=== PATIENT | female | born 1960 | race Caucasian/White ===

== ENCOUNTER 2017-10-08 20:09 | Emergency (ER) | payer MEDICAID ==
[~2017-10-08] VITALS: Ht 157.5 cm; Wt 63.5 kg
[~2017-10-08 20:09] MED LIST: IBUP-2213 PO; VIC PO
[2017-10-08 20:19] VITALS: BP 114/68
--- NOTE | 2017-10-08 20:24 | NUR ---
TO LOBBY, MOMO, VSS, A/W FOR BED, JEFFERSON NOTED
[2017-10-08] MEDS ORDERED: ACETAMINOPHEN EXTRA STRENGTH 500 MG TAB ONE (20:36)
--- NOTE | 2017-10-09 00:45 | NUR ---
Note debbie in EDM - 10/09/17 at 0241 by EMBER Patient discharged with v/s stable. Written and verbal after care instructions given and explained. Patient alert, oriented and verbalized understanding of instructions. Ambulatory with steady gait. All questions addressed prior to discharge. ID band removed. Patient advised to follow up with PMD. Rx of MOTRIN AND PROMETHAZINE/DEXTROMETHORPHAN given. Patient educated on indication of medication including possible reaction and side effects. Opportunity to ask questions provided and answered.
--- NOTE | 2017-10-09 00:50 | NUR ---
PT TAKEN TO OVERFLOW 1
--- NOTE | 2017-10-09 00:51 | NUR ---
57/F CAME IN WITH C/O HEADACHE AND COUGH X 1 WEEK, WITH FEVERS, PT CAME IN WTIH 101.5, COOLING MEASURES AND MED PROTOCOL GIVEN. ALL LUNG SOUNDS CBTA, 18RR EVEN AND UNLABORED. DENIES PMH/RX/OTC
[2017-10-09] MEDS ORDERED: PROCHLORPERAZINE 10 MG/2 ML VIAL IM ONE (01:05)
[2017-10-09] MEDS ORDERED: diphenhydrAMINE 50 MG/ML VIAL IM ONE (01:05)
[2017-10-09 01:45] VITALS: BP 113/56
--- NOTE | 2017-10-09 01:45 | NUR ---
Patient discharged with v/s stable. Written and verbal after care instructions given and explained. Patient alert, oriented and verbalized understanding of instructions. Ambulatory with steady gait. All questions addressed prior to discharge. ID band removed. Patient advised to follow up with PMD. Rx of MOTRIN AND PROMETHAZINE/DEXTROMETHORPHAN given. Patient educated on indication of medication including possible reaction and side effects. Opportunity to ask questions provided and answered.
== END 2017-10-09 01:45 | disposition home or self-care (01) ==
LOC: MED 20:09
DX: J06.9 Acute upper respiratory infection, unspecified (principal); K21.9 Gastro-esophageal reflux disease without esophagitis
CPT/HCPCS: 71046; 96372; 99284; J0780; J1200

== ENCOUNTER 2017-12-10 16:38 | Emergency (ER) | payer MEDICAID ==
[~2017-12-10] VITALS: Ht 149.9 cm; Wt 68.7 kg
[2017-12-10 16:43] VITALS: BP 119/74
--- NOTE | 2017-12-10 16:49 | NUR ---
URINE CUP PROVIDED TO PT FOR URINE SAMPLE. PT AWAKE, ALERT, APPROPRIATE, WITH EVEN AND STEADY GAIT. TO LOBBY AWAITING OPEN BED.
--- NOTE | 2017-12-10 17:53 | NUR ---
PT AMBULATED TO BED 1.
--- NOTE | 2017-12-10 18:18 | NUR ---
PT COMES TO ER FOR RUQ PAIN X 1 YEAR, WORSENING IN THE LAST 4 DAYS WITH FEVERS/NAUSEA/VOMITTING/DIARRHEA. ABD LARGE, SOFT, TENDER TO PALPATION, +BS X 4 QUADS. RESP EVEN AND UNLABORED, IN NAD. PT STATES SHE HAD A CHOLECYSTECTOMY IN 2017. DENIES DYSURIA. SKIN W/D/I.
[2017-12-10 19:04] LABS: BASOPHILS % (AUTO) 1.1 % (0.0-2.0); HEMATOCRIT 38.4 % (36-48); HEMOGLOBIN 12.6 g/dL (12.0-16.0); LYMPHOCYTES % (AUTO) 34.5 % (20.5-51.1); MEAN CORPUSCULAR HEMOGLOBIN 31 pg (27-31); MEAN CORPUSCULAR HGB CONC 33 g/dL (33-37); MEAN CORPUSCULAR VOLUME 94 fL (80-94); MONOCYTES % (AUTO) 8.3 % (1.7-9.3); NEUTROPHILS # (AUTO) 3.4 K/uL (1.8-7.7); NEUTROPHILS % (AUTO) 53.1 % (42.2-75.2); PLATELET COUNT (AUTO) 227 K/uL (140-450); RED CELL DISTRIBUTION WIDTH 12.7 % (11.6-13.7); WHITE BLOOD COUNT (AUTO) 6.5 K/uL (4.8-10.8)
[2017-12-10 19:05] LABS: BASOPHILS # (AUTO) 0.1 K/uL (0.00-0.22); EOSINOPHILS # (AUTO) 0.5 K/uL (0-0.4)
--- NOTE | 2017-12-10 19:08 | NUR ---
REPORT GIVEN TO ONCOMING RN
--- NOTE | 2017-12-10 19:13 | NUR ---
REPORT RECEIVED FROM GERRI JENKINS
[2017-12-10 19:14] LABS: CREATININE 0.9 mg/dL (0.6-1.3)
--- NOTE | 2017-12-10 19:20 | NUR ---
Patient being evaluated by physician at bedside.
[2017-12-10 19:30] LABS: ALBUMIN 3.9 g/dL (3.4-5.0); TOTAL BILIRUBIN 0.2 mg/dL (0.0-1.0)
[2017-12-10 19:32] LABS: APPEARANCE,URINE CLEAR (CLEAR); BILIRUBIN,URINE NEGATIVE (NEGATIVE); BLOOD, URINE 1+ (NEGATIVE); COLOR,URINE YELLOW (YELLOW); LEUKOCYTE ESTERASE ,URINE NEGATIVE (NEGATIVE); NITRITE, URINE NEGATIVE (NEGATIVE); UGLUCOSE NEGATIVE (NEGATIVE)
[2017-12-10 19:46] LABS: CALCIUM OXALATE CRYSTALS,UR 0-10 /HPF (None Seen); RBC,URINE 3-10 (FEW) /HPF (0-5); WBC,URINE 0-5 (RARE) /HPF (0-5)
[2017-12-10] MEDS ORDERED: KETOROLAC 60 MG/2 ML VIAL IM ONE (21:15)
[2017-12-10 21:50] VITALS: BP 109/67
--- NOTE | 2017-12-10 21:50 | NUR ---
Patient discharged with v/s stable. Written and verbal after care instructions given and explained. Patient alert, oriented and verbalized understanding of instructions. Ambulatory with steady gait. All questions addressed prior to discharge. ID band removed. Patient advised to follow up with PMD. Rx of MIRALAX , ZOFRAN 4MG given. Patient educated on indication of medication including possible reaction and side effects. Opportunity to ask questions provided and answered.
== END 2017-12-10 21:50 | disposition home or self-care (01) ==
LOC: MED 16:38
DX: R10.11 Right upper quadrant pain (principal); K21.9 Gastro-esophageal reflux disease without esophagitis; Z90.49 Acquired absence of other specified parts of digestive tract
CPT/HCPCS: 36415; 74018; 74176; 80053; 81001; 83690; 85025; 96372; 99285; J1885

== ENCOUNTER 2018-05-31 15:43 | Emergency (ER) | payer MEDICAID ==
[~2018-05-31] VITALS: Ht 149.9 cm; Wt 69.9 kg
[2018-05-31 15:57] VITALS: BP 118/73
[2018-05-31 18:08] VITALS: BP 120/70
== END 2018-05-31 18:08 | disposition home or self-care (01) ==
LOC: MED 15:43
DX: M50.123 Cervical disc disorder at C6-C7 level with radiculopathy (principal); K21.9 Gastro-esophageal reflux disease without esophagitis; Z90.49 Acquired absence of other specified parts of digestive tract; Z79.899 Other long term (current) drug therapy
CPT/HCPCS: 72125; 73030; 99284